=== PATIENT | male | born 1960 | race Caucasian/White ===

== ENCOUNTER 2023-11-14 13:48 | Emergency (ER) | payer BC, MEDICARE ==
--- NOTE | 2023-11-14 14:39 | ED ---
Skin/Abscess/FB HPI - General Chief complaint: Skin/Abscess/Foreign Body Stated complaint: Left leg lower ankle injury Time Seen by Provider: 11/14/23 14:01 Source: patient, family, RN notes reviewed Mode of arrival: ambulatory Limitations: physical limitation - History of Present Illness Initial comments: This is a 63-year-old male presents emergency department chief complaint of left lower extremity erythema, edema, and pain. Patient states that on Thursday while he was home in [place], at the grocery store a glass fell on the floor cutting his left ankle. Patient went to urgent care where marleni were placed that were unsuccessful where he reported to the emergency room where further stapling was completed. Patient states that he recently flew from [place] to [place] and over the last 48 hours has been experiencing erythema, pain, edema of the left lower extremity. He also notes that there is purulent drainage at the area of the laceration. Patient was prescribed antibiotics and 1 dose of Keflex this morning. He denies shortness of breath, heart palpitations, dizziness, lightheadedness, history of DVT or PE. Is not on blood thinners. - Related Data Allergies Allergy/AdvReac Type Severity Reaction Status Date / Time No Known Allergies Allergy Verified 11/14/23 13:58 Review of Systems ROS Statement: Those systems with pertinent positive or pertinent negative responses have been documented in the HPI. ROS Other: All systems not noted in ROS Statement are negative. Past Medical History Past Medical History: Cancer, Hypertension Additional Past Medical History / Comment(s): prostate History of Any Multi-Drug Resistant Organisms: None Reported Past Surgical History: No Surgical Hx Reported Additional Past Surgical History / Comment(s): prostate removed. Past Psychological History: No Psychological Hx Reported Smoking Status: Never smoker Past Alcohol Use History: None Reported Past Drug Use History: None Reported General Exam Limitations: physical limitation General appearance: alert, in no apparent distress Head exam: Present: atraumatic, normocephalic, normal inspection Eye exam: Present: normal appearance, PERRL, EOMI. Absent: scleral icterus, conjunctival injection, periorbital swelling ENT exam: Present: normal exam, mucous membranes moist Neck exam: Present: normal inspection. Absent: tenderness, meningismus, lymphadenopathy Respiratory exam: Present: normal lung sounds bilaterally. Absent: respiratory distress, wheezes, rales, rhonchi, stridor Cardiovascular Exam: Present: regular rate, normal rhythm, normal heart sounds. Absent: systolic murmur, diastolic murmur, rubs, gallop, clicks GI/Abdominal exam: Present: soft, normal bowel sounds. Absent: distended, tenderness, guarding, rebound, rigid Left Lower Leg exam: Present: swelling (erythema) Ankle exam: Present: tenderness, swelling, laceration (3 cm laceration over the lateral malleolus), deformity, erythema. Absent: normal inspection, full ROM, anterior draw sign Neurovascular tendon exam: Present: no vascular compromise. Absent: pulse deficit, abnormal cap refill, sensory deficit Gait: observed and limited by pain Back exam: Present: normal inspection Neurological exam: Present: alert, oriented X3, CN II-XII intact Psychiatric exam: Present: normal affect, normal mood Skin exam: Present: warm, dry, intact, normal color. Absent: rash Course Vital Signs 11/14/23 11/14/23 13:50 15:00 Temperature 98 F Pulse Rate 80 78 Respiratory 18 17 Rate Blood Pressure 123/68 129/78 O2 Sat by Pulse 99 97 Oximetry Medical Decision Making - Medical Decision Making Was pt. sent in by a medical professional or institution (BRAYDON Meyers, ACID OPERATOR, urgent care, hospital, or detention...) When possible be specific @ -No Did you speak to anyone other than the patient for history (EMS, parent, family, police, friend...)? What history was obtained from this source @ -No Did you review nursing and triage notes (agree or disagree)? Why? @ -I reviewed and agree with nursing and triage notes Were old charts reviewed (outside hosp., previous admission, EMS record, old EKG, old radiological studies, urgent care reports/EKG's, detention records)? Report findings @ -No old charts were reviewed Differential Diagnosis (chest pain, altered mental status, abdominal pain women, abdominal pain men, vaginal bleeding, weakness, fever, dyspnea, syncope, headache, dizziness, GI bleed, back pain, seizure, CVA, palpatations, mental health, musculoskeletal)? @ -Not applicable EKG interpreted by me (3pts min.). @ -As above X-rays interpreted by me (1pt min.). @ - xray of the left foot and left ankle reveals no evidence of acute fracture, soft tissue swelling throughout the foot and centered around the left lateral ankle, skin marleni near the lateral malleolus. No subcutaneous gas or evidence for osseous erosion. CT interpreted by me (1pt min.). @ -None done U/S interpreted by me (1pt. min.). @ -duplex ultrasound of the left lower extremity negative for DVT What testing was considered but not performed or refused? (CT, X-rays, U/S, labs)? Why? @ -None What meds were considered but not given or refused? Why? @ -None Did you discuss the management of the patient with other professionals (pro fessionals i.e. , PA, ACID OPERATOR, lab, RT, psych nurse, social worker palliative care, instrumentation designer, teacher, credit risk officer, rn case manager hospice)? Give summary @ -With my attending Dr. Cespedes regarding the patient's case. He personally evaluated the patient recommended that some of the marleni be removed and Steri- Strips to be placed over the laceration. Additionally wound cultures will be sent and patient was provided with IV dose of antibiotics in the emergency department before discharge. Was smoking cessation discussed for >3mins.? @ -No Was critical care preformed (if so, how long)? @ -No Were there social determinants of health that impacted care today? How? (Homelessness, low income, unemployed, alcoholism, drug addiction, transportation, low edu. Level, literacy, decrease access to med. care, senior care, rehab)? @ -No Was there de-escalation of care discussed even if they declined (Discuss DNR or withdrawal of care, Hospice)? DNR status @ -No What co-morbidities impacted this encounter? (DM, HTN, Smoking, COPD, CAD, Cancer, CVA, ARF, Chemo, Hep., AIDS, mental health diagnosis, sleep apnea, morbid obesity)? @ -None Was patient admitted / discharged? Hospital course, mention meds given and route, prescriptions, significant lab abnormalities, going to OR and other pertinent info. @ -Next he 3-year-old male with left lower extremity erythema, edema, and pain. On examination patient's left lower extremity from the lateral malleolus extending to the mid calf is warm to the touch, edematous, with localized eryt elizabeth surrounding the incision. There are skin marleni in place with noted purulent drainage. Patient will be evaluated via ultrasound, x-rays, and labs. He is symptomatically treated with IV fluids and pain medication. CBC and CMP within normal limits. Lactic acid nonelevated. CRP mildly elevated at 8.7. The left ankle reveals soft tissue swelling throughout the foot and centered on the left lateral malleolus. Ultrasound negative for DVT. 4 marleni were removed from the patient's incision. Wound culture sent. He is provided with a dose of IV antibiotics and instructed to complete course of Keflex prescribed. Recommend that patient follows up on Thursday when he returns home for further evaluation. Return to the emergency department for any worsening symptoms including severe pain, erythema, purulence, fevers, nausea or vomiting or chills. Questions answered at bedside and strict return parameters discussed with the patient he is verbalized understanding. Case discussed with Dr. Cespedes. Review Undiagnosed new problem with uncertain prognosis? @ -No Drug Therapy requiring intensive monitoring for toxicity (Heparin, Nitro, Insulin, Cardizem)? @ -No Were any procedures done? @ -staple removal of left lateral malleolus ankle laceration, 4 removed Diagnosis/symptom? @ -ankle laceration, cellulitis Acute, or Chronic, or Acute on Chronic? @ -Acute Uncomplicated (without systemic symptoms) or Complicated (systemic symptoms)? @ -uncomplicated Side effects of treatment? @ -No Exacerbation, Progression, or Severe Exacerbation? @ -No Poses a threat to life or bodily function? How? (Chest pain, USA, SC, pneumonia, PE, COPD, DKA, ARF, appy, cholecystitis, CVA, Diverticulitis, Homicidal, Suicidal, threat to staff... and all critical care pts) @ -No - Lab Data Result diagrams: 11/14/23 14:44 11/14/23 14:44 Lab Results 11/14/23 11/14/23 11/14/23 Range/Units 14:44 14:44 14:44 WBC 8.7 (3.8-10.6) k/uL RBC 3.92 L (4.30-5.90) m/uL Hgb 12.6 L (13.0-17.5) gm/dL Hct 37.2 L (39.0-53.0) % MCV 94.9 (80.0-100.0) fL MCH 32.1 (25.0-35.0) pg MCHC 33.8 (31.0-37.0) g/dL RDW 13.3 (11.5-15.5) % Plt Count 225 (150-450) k/uL MPV 7.5 Neutrophils % 85 % Lymphocytes % 7 % Monocytes % 6 % Eosinophils % 1 % Basophils % 0 % Neutrophils # 7.4 (1.3-7.7) k/uL Lymphocytes # 0.6 L (1.0-4.8) k/uL Monocytes # 0.5 (0-1.0) k/uL Eosinophils # 0.1 (0-0.7) k/uL Basophils # 0.0 (0-0.2) k/uL Sodium 136 L (137-145) mmol/L Potassium 4.2 (3.5-5.1) mmol/L Chloride 106 (98-107) mmol/L Carbon Dioxide 21 L (22-30) mmol/L Anion Gap 9 mmol/L BUN 13 (9-20) mg/dL Creatinine 0.87 (0.66-1.25) mg/dL Est GFR (CKD-EPI)AfAm >90 (>60 ml/min/1.73 sqM) Est GFR (CKD-EPI)NonAf >90 (>60 ml/min/1.73 sqM) Glucose 149 H (74-99) mg/dL Plasma Lactic Acid Nelson 1.2 (0.7-2.0) mmol/L Calcium 9.2 (8.4-10.2) mg/dL Total Bilirubin 1.0 (0.2-1.3) mg/dL AST 27 (17-59) U/L ALT 29 (4-49) U/L Alkaline Phosphatase 96 (38-126) U/L C-Reactive Protein 8.7 H (<1.0) mg/dL Total Protein 7.0 (6.3-8.2) g/dL Albumin 4.1 (3.5-5.0) g/dL Disposition Clinical Impression: Cellulitis, Wound dehiscence Disposition: HOME SELF-CARE Condition: Good Instructions (If sedation given, give patient instructions): Cellulitis (ED) Additional Instructions: Return to the emergency department for any new or worsening symptoms. Complete full course of antibiotics as prescribed. Recommend that you follow-up on Thursday for reevaluation. Is patient prescribed a controlled substance at d/c from ED?: No Referrals: None,Stated [Primary Care Provider] - 1-2 days Time of Disposition: 16:24
[2023-11-14 14:51] LABS: Basophils % (A) 0 %; Eosinophils # (A) 0.1 k/uL (0-0.7); Eosinophils % (A) 1 %; HCT 37.2 % (39.0-53.0); HGB 12.6 gm/dL (13.0-17.5); Lymphocytes # (A) 0.6 k/uL (1.0-4.8); Lymphocytes % (A) 7 %; MCH 32.1 pg (25.0-35.0); MCHC 33.8 g/dL (31.0-37.0); MCV 94.9 fL (80.0-100.0); Mean Platelet Volume 7.5; Monocytes # (A) 0.5 k/uL (0-1.0); Monocytes % (A) 6 %; Neutrophils # (A) 7.4 k/uL (1.3-7.7); Neutrophils % (A) 85 %; Platelet Count 225 k/uL (150-450); RBC 3.92 m/uL (4.30-5.90); RDW 13.3 % (11.5-15.5); WBC 8.7 k/uL (3.8-10.6)
[2023-11-14] MEDS: SODIUM CHLORIDE 0.9% 1,000 ML IV STA (14:56)
[2023-11-14] MEDS: HYDROmorphone 1 MG/ML 1 ML SYRINGE IVP STA (15:00)
[2023-11-14 15:09] LABS: ALT 29 U/L (4-49); AST 27 U/L (17-59); African American GFR (CKD) >90 (>60 ml/min/1.73 sqM); Albumin 4.1 g/dL (3.5-5.0); Alkaline Phosphatase 96 U/L (38-126); Anion Gap 9 mmol/L; Blood Urea Nitrogen 13 mg/dL (9-20); C Reactive Protein 8.7 mg/dL (<1.0); Calcium 9.2 mg/dL (8.4-10.2); Carbon Dioxide 21 mmol/L (22-30); Chloride 106 mmol/L (98-107); Glucose 149 mg/dL (74-99); Non-African American GFR(CKD) >90 (>60 ml/min/1.73 sqM); Potassium 4.2 mmol/L (3.5-5.1); Sodium 136 mmol/L (137-145)
--- NOTE | 2023-11-14 15:16 | XR ---
EXAMINATION TYPE: XR foot complete LT, XR ankle complete LT DATE OF EXAM: 11/14/2023 2:57 PM CLINICAL INDICATION:Male, 63 years old with history of erythema, previous injury, swelling; [facility] COMPARISON: None TECHNIQUE: XR foot complete LT, XR ankle complete LT examined in the AP, oblique, and lateral project ions. FINDINGS/IMPRESSION: 1. No evidence of acute fracture. 2. Soft tissue swelling throughout the foot and centered around the left lateral ankle, skin marleni near the lateral malleolus. No subcutaneous gas or evidence for osseous erosion. 3. Mild Degeneration changes throughout the joints of the foot.
--- NOTE | 2023-11-14 15:52 | US ---
EXAMINATION TYPE: US venous doppler duplex LE LT DATE OF EXAM: 11/14/2023 3:36 PM COMPARISON: NONE CLINICAL INDICATION: Male, 63 years old with history of erythema, previous injury, swelling; Recent t ravel from [place]. No hx DVT. Not on blood thinners. No swelling. SIDE PERFORMED: Left TECHNIQUE: The lower extremity deep venous system is examined utilizing real time linear array sonog cesar with graded compression, doppler sonography and color-flow sonography. VESSELS IMAGED: Common Femoral Vein Deep Femoral Vein Greater Saphenous Vein * Femoral Vein Popliteal Vein Small Saphenous Vein * Proximal Calf Veins (* superficial vessels) Left Leg: Negative for DVT IMPRESSION: Grayscale, color doppler, spectral doppler imaging performed of the deep veins of the lo wer extremities. There is normal flow, compressibility, vascular waveforms.
[2023-11-14 17:04] VITALS: BP 122/74; PULSE 60; RESP 16; TEMP 99.2
[2023-11-14] MEDS: ACET/COD 300 MG/30 MG STARTER PACK 6 TAB BTL PO STA (17:23)
== END 2023-11-14 17:29 | disposition home or self-care (01) ==
LOC: EC 13:48
DX: S91.012A Laceration without foreign body, left ankle, initial encounter (principal); T81.30XA Disruption of wound, unspecified, initial encounter; L03.116 Cellulitis of left lower limb; R79.82 Elevated C-reactive protein (CRP); B95.62 Methicillin resistant Staphylococcus aureus infection as the cause of diseases classified elsewhere; W25.XXXA Contact with sharp glass, initial encounter; Y92.512 Supermarket, store or market as the place of occurrence of the external cause
CPT/HCPCS: 36415; 80053; 83605; 85025; 86140; 87070; 87205; 87075; 73610; 73630; 93971; 99284; 96365; 96375; 96361 ×2; J0690; J1170